=== PATIENT | female | born 1980 | race Caucasian/White ===

== ENCOUNTER 2016-08-12 12:02 | Emergency (ER) | payer OTHER ==
[2016-08-12 12:21] LABS: URINE SOURCE CLEAN CATCH
[2016-08-12 12:30] LABS: URINE APPEARANCE CLOUDY; URINE BILIRUBIN NEG (NEG); URINE BLOOD 1+ (NEG); URINE COLOR YELLOW; URINE GLUCOSE NEG (NEG); URINE KETONE NEG (NEG); URINE LEUKOCYTE ESTERASE TRACE (NEG); URINE NITRATE NEG (NEG); URINE PH 7.5 (5-8); URINE PROTEIN 1+ (NEG); URINE SPECIFIC GRAVITY 1.025 (1.003-1.035)
[2016-08-12 12:33] LABS: CULTURE INDICATED? YES; URINE BACTERIA AUWI 2+ (NEGATIVE); URINE SQUAMOUS EPITHELIAL CELL MOD /[HPF]
[2016-08-12 12:35] LABS: BASOPHIL# 0.1 X10e3 (0-0.3); BASOPHIL% 0.4 % (0-2.5); EOSINOPHIL# 0.2 X10e3 (0-0.7); EOSINOPHIL% 1.2 % (0.0-7.0); HEMATOCRIT 45.8 % (35.0-45.0); HEMOGLOBIN 15.4 gm/dL (12.0-16.0); LYMPHOCYTE# 1.7 X10e3 (1.0-3.5); LYMPHOCYTE% 12.3 % (17.0-45.0); MEAN CORPUSCULAR HEMOGLOBIN 33.4 PG (28-34); MEAN CORPUSCULAR HGB CONC 33.7 g/dL (30-36); MEAN PLATELET VOLUME 9.5 FL (6.5-11.5); MONOCYTE# 0.6 X10e3 (0-1.0); MONOCYTE% 4.4 % (3.0-12.0); NEUTROPHIL# 11.5 X10e3 (1.5-7.1); NEUTROPHIL% 81.7 % (40-75); PLATELET COUNT 208 X10e3 (140-420); RED BLOOD COUNT 4.62 X10e (3.90-5.30); RED CELL DISTRIBUTION WIDTH 13.8 % (11.0-15.5); WHITE BLOOD COUNT 14.1 X10e3 (4.0-10.5)
[2016-08-12 12:52] LABS: DIFF IND NO
[2016-08-12 13:04] LABS: ALBUMIN SERUM 4.1 g/dL (3.5-5.0); BILIRUBIN, DIRECT 0.1 mg/dL (0.0-0.2); BILIRUBIN,INDIRECT 0.6 mg/dL (0.0-0.9); BILIRUBIN,TOTAL 0.7 mg/dL (0.2-2.0); CALCIUM SERUM 8.9 mg/dL (8.4-10.2); CREATININE SERUM 0.7 mg/dL (0.6-1.4); GLOM FILT RATE Estimated 111.5 mL/min (>60); POTASSIUM 3.5 mmol/L (3.5-5.1); PROTEIN TOTAL SERUM 7.2 g/dL (6.0-8.3)
[2016-08-12] MEDS ORDERED: NO MEDICATIONS (14:07)
== END 2016-08-12 15:25 | disposition home or self-care (01) ==
LOC: CED 12:02
PROVIDERS: Emergency Medicine
DX: N39.0 Urinary tract infection, site not specified (principal); F17.200 Nicotine dependence, unspecified, uncomplicated
CPT/HCPCS: 36415; 80048; 80076; 81003; 83690; 84703; 85025; 87086; 96361; 96372; 96374; 99284; J0500; J2405

== ENCOUNTER 2016-10-22 15:07 | Emergency (ER) | payer OTHER ==
[~2016-10-22] VITALS: Ht 161.3 cm; Wt 74.8 kg
--- NOTE | ~2016-10-22 | CR63 ---
[facility] A Service of [facility] & [facility] RADIOLOGY TEXT RESULTS PATIENT: BETITO MCFARLAND LOCATION: [facility] : [birth year] UNIT #: [id number] AGE: [address]: Carol Sarah APRN SEX: F ORDER DR: [id number] [facility] [address] [place], [place] [address] [id number] E MR#: [id number] Acc #: [id number] NAME: BETITO MCFARLAND. : 1980 SEX: F STUDY DATE/TIME: 10/22/2016 15:38 UNIT: [facility] ROOM: STUDY DESCRIPTION: CR Chest 2 View Attending Physician: Carol Sarah A.P.R.N. Ordering Physician: Ed Jeffery Naidu M.D. Primary Care Physician: Primary Care Physician No MEDICAL IMAGING REPORT This report is preliminary unless electronic signature is present EXAM PA and lateral chest INDICATIONS Cough and shortness of breath and headache for 1 week. COMPARISON 12/20/2011 FINDINGS The lungs are well expanded and clear. The heart size is normal. Degenerative changes of the thoracic spine. IMPRESSION Negative chest. Dictated by... Cesar Reilly M.D. THIS IS AN ELECTRONICALLY VERIFIED REPORT Cesar Reilly M.D. at 10/23/2016 7:32 AM KARYN/janie TD: 10/23/2016 03:17 JOB #: [id number] MEDICAL IMAGING REPORT Page 1 of 1 COPY
[~2016-10-22 15:07] MED LIST: NO MEDICATIONS
== END 2016-10-22 16:30 | disposition home or self-care (01) ==
LOC: CED 15:07 → CFTX 15:07
DX: J40 Bronchitis, not specified as acute or chronic (principal); F17.200 Nicotine dependence, unspecified, uncomplicated; Z88.7 Allergy status to serum and vaccine
CPT/HCPCS: 71020; 84703; 87651; 99283

== ENCOUNTER 2016-10-31 00:06 | Emergency (ER) | payer OTHER ==
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
== END 2016-10-31 03:25 | disposition home or self-care (01) ==
LOC: CED 00:06
DX: S43.52XA Sprain of left acromioclavicular joint, initial encounter (principal); F17.200 Nicotine dependence, unspecified, uncomplicated; Y00.XXXA Assault by blunt object, initial encounter
CPT/HCPCS: 73000; 73030; 99284